=== PATIENT | female | born 1990 | race Caucasian/White ===

== ENCOUNTER 2017-01-25 21:16 | Inpatient (IN) | payer MEDICAID ==
[~2017-01-25] VITALS: Ht 149.9 cm; Wt 60.8 kg
--- NOTE | 2017-01-25 22:00 | NUR ---
PT C/O PELVIC PAIN THAT BEGAN 3 DAYS AGO. SINCE THEN PT STATES ADDITIONAL SX HAVE ACCOMPANY PELVIC PAIN. PT REPORTS TAKING ANTIBIOTIC DUE TO TOOTH INFECTION SINCE THEN PT NOTED LEFT SIDE HEADACHE, DESCRIBING IT PRESSURE. PT LEFT FACIAL NOTED TO BE SWOLLEN IN COMPARISION TO RIGHT FACIAL. PT NOTED TO BE ALERT AND AWAKE, TALKING TO SIGNIFICANT OTHER AT BEDSIDE. NO DISTRESS NOTED AT THIS TIME. PT IN WAITING TO BE SEEN BY ER MD.
--- NOTE | 2017-01-25 23:04 | NUR ---
DR RAMOS AT BEDSIDE FOR MSE.
--- NOTE | 2017-01-25 23:26 | NUR ---
PT MEDICATED PER DR RAMOS ORDERS. PT EDUCATED ON MED AND VERBALIZED UNDERSTANDING OF TEACHING.PT DENIES ANY ALLERGIES TO MED. IV SITE PATENT WITH NO SWELLING REDNESS OR INFILTRATION NOTED. PT AAOX4,BREATHING WITHOUT DIFFICULTY.
--- NOTE | 2017-01-25 23:28 | NUR ---
PT PICKED UP BY [facility] VIA WHEELCHAIR. NO DISTRESS NOTED AT THIS TIME.
--- NOTE | 2017-01-25 23:34 | NUR ---
PT BROUGHT BACK TO VIA WHEELCHAIR FROM XRAY. NO DISTRESS NOTED AT THIS TIME.
[2017-01-25 23:39] LABS: BASOPHIL % 0.4 % (0-2); PLATELET COUNT 257 x10^3mcL (130-400); RED CELL DISTRIBUTION WIDTH 13.4 % (11.5-14.5)
[2017-01-25 23:40] LABS: CALCIUM 8.6 mg/dL (8.5-10.1); CARBON DIOXIDE 28.2 mmol/L (21-32); CHLORIDE SERUM 105 mmol/L (98-107); GFR1 > 60 mL/min; GLUCOSE SERUM 86 mg/dL (74-106); POTASSIUM SERUM 4.1 mmol/L (3.5-5.1); SODIUM SERUM 141 mmol/L (136-145)
[2017-01-25 23:53] LABS: ALBUMIN 3.9 g/dL (3.4-5.0); ALKALINE PHOSPHATASE 78 U/L (46-116); ALT/SGPT 54 U/L (14-59); AMYLASE 77 U/L (25-115); AST/SGOT 23 U/L (15-37); BILIRUBIN TOTAL 0.8 mg/dL (0.20-1.00); LIPASE 115 IU/L (73-393); TOTAL PROTEIN, SERUM 7.3 g/dL (6.4-8.2)
--- NOTE | 2017-01-25 23:54 | NUR ---
LUNCH BREAK REPORT GIVEN TO EVANGELIST ALCANTARA TO COVER CARE.
[2017-01-26] VITALS (7 sets, daily range): BP systolic 96–120; BP diastolic 50–72
[2017-01-26 00:17] LABS: microscopic required? YES; urine erythrocyte TRACE (NEGATIVE)
--- NOTE | 2017-01-26 00:29 | NUR ---
LUNCH BREAK REPORT RECEIVED FROM EVANGELIST ALCANTARA TO CONTINUE CARE.
--- NOTE | 2017-01-26 00:50 | NUR ---
DR RAMOS AT BEDSIDE DISCUSSING PLAN OF CARE.
--- NOTE | 2017-01-26 01:12 | NUR ---
PT GIVEN IV ANTIBIOTIC PER DR RAMOS ORDERS. PT EDUCATED ON MED AND VERBALIZED UNDERSTANDING OF TEACHING. PT DENIES ANY ALLERGIES TO MED. PT IV SITE PATENT WITH NO COMPLICATIONS NOTED. PT AAOX4, BREATHING EVEN AND UNLABORED. NO DISTRESS NOTED AT THIS TIME.
--- NOTE | 2017-01-26 01:25 | NUR ---
XRAY AT BEDSIDE.
--- NOTE | 2017-01-26 01:33 | NUR ---
ADMISSION REPORT GIVEN TO EVANGELIST JASSO EXT [id number] TO CONTINUE CARE.
--- NOTE | 2017-01-26 01:45 | NUR ---
RECEIVED PT IN FROM ER VIA GURNEY WITH NURSE AND FIANCE AT BEDSIDE. PT IS AWAKE, ALERT, ORIENTED X4. PT IS SLIGHTLY DROWSY D/T PAIN MEDICATION GIVEN IN ER. SPEECH IS CLEAR. PLACED PT ON TELE 19, SHOWING NSR. NO CHEST PAIN NOTED. BREATHING EASILY ON ROOM AIR. NO DISTRESS NOTED. HISTORY OBTAINED FROM PT. ORIENTED PT TO ROOM AND SURROUNDINGS. INSTRUCTED PT TO USE CALL LIGHT WHICH IS WITHIN REACH. BED IS IN LOWEST POSITION. WILL CARRY OUT ALL NEW ORDERS.
[2017-01-26 01:58] LABS: MAGNESIUM 2.2 mg/dL (1.8-2.4); PHOSPHOROUS 4.6 mg/dL (2.5-4.9)
[2017-01-26 02:01] LABS: FREE T4 0.97 ng/dL (0.76-1.46); FREE THYROXINE INDEX 2.5 ug/dL (1.4-4.5); T4(THYROXINE) 7.4 ug/dL (4.7-13.3)
[2017-01-26 02:02] LABS: T3 TOTAL 1.17 ng/mL
[2017-01-26 06:03] LABS: CALCIUM 8.5 mg/dL (8.5-10.1); CARBON DIOXIDE 26.5 mmol/L (21-32); CHLORIDE SERUM 105 mmol/L (98-107); CREATININE SERUM 0.9 mg/dL (0.6-1.0); GFR1 > 60 mL/min; GLUCOSE SERUM 89 mg/dL (74-106); MAGNESIUM 2.1 mg/dL (1.8-2.4); PHOSPHOROUS 4.1 mg/dL (2.5-4.9); POTASSIUM SERUM 4.1 mmol/L (3.5-5.1); SODIUM SERUM 141 mmol/L (136-145)
--- NOTE | 2017-01-26 06:15 | NUR ---
PT C/O PAIN, HEADACHE, TORADOL GIVEN ORDERED AT 0600. PT STATES PAIN MED MAKES HER NAUSOUS, ZOFRAN GIVEN ORDERED FOR NAUSEA. ALL NEEDS TENDED TO. WILL ENDORSE TO INCOMING SHIFT.
[2017-01-26 06:18] LABS: BASOPHIL % 0.6 % (0-2); PLATELET COUNT 232 x10^3mcL (130-400); RED CELL DISTRIBUTION WIDTH 13.5 % (11.5-14.5)
--- NOTE | 2017-01-26 07:51 | NUR ---
RECEIVED PT IN BED, A/A/O X 4, CALM, COOPERATIVE, BOYFRIEND BY BEDSIDE. ON TELE # 19, SHOWING SR WITH HR 73. PAUL RADIAL AND PEDAL PULSES PRESENT, NO EDEMA, CAP REFILL < 3 SECS. PAUL LUNGS CLEAR, CHEST RISING EVENLY, ON R/A WITH O2 SAT 96%. ABD SOFT, FLAT, NO C/O PAIN AT THIS TIME, NORMOACTIVE BOWEL SOUNDS X 4 QUADS. VOIDS FREELY, NO C/O PAIN OR DYSURIA, ABLE TO PAS GAS. AMBULATES WITHOUT GAIT OR BALANCE IMPAIRMENT. HAS MILD SWELLING TO L FACE, NO REDNESS. DENIES PAIN AT THIS TIME. IV SITE AT [facility], RUNNING NS AT 100 ML/HR. SIDE RAILS UP X 2, CALL LIGHT WITHIN REACH, BED IN LOW POSITION. WILL CONTINUE TO MONITOR.
--- NOTE | 2017-01-26 08:17 | NUR ---
DR AMEZCUA, RESIDENTS, CHARGE NURSE, AND ASSIGNED NURSE CAME IN TO SEE PT; MD DISCUSSED CARE PLAN FOR PT TODAY; ALL QUESTIONS WERE ANSWERED; PT VERBALIZED UNDERSTANDING.
[2017-01-26 08:59] LABS: AMPHETAMINE QUAL UR NONE DETECTED (NEG <=1000)
--- NOTE | 2017-01-26 11:30 | NUR ---
PT IN BED, ASLEEP, BOYFRIEND BY BEDSIDE. NO RESPIRATORY DISTRESS, PAIN, OR DISCOMFORT NOTED. WILL CONTINUE TO MONITOR.
--- NOTE | 2017-01-26 13:50 | NUR ---
PT IN BED, WATCHING TV, BOYFRIEND BY BEDSIDE; NO RESPIRATORY DISTRESS, PAIN, OR DISCOMFORT NOTED. WILL CONTINUE TO MONITOR.
--- NOTE | 2017-01-26 15:20 | NUR ---
PT WAS TAKEN DOWNSTAIRS VIA W/C TO HAVE CT FACIAL WITH IV CONTRAST; A/A/O X 4, NO RESPIRATORY DISTRESS, PAIN, OR DISCOMFORT NOTED.
--- NOTE | 2017-01-26 18:44 | NUR ---
PT IN BED, ASLEEP. NO RESPIRATORY DISTRESS, PAIN, OR DISCOMFORT NOTED. WILL ENDORSE TO NOC SHIFT.
--- NOTE | 2017-01-26 19:30 | NUR ---
RECEIVED REPORT FROM EVANGELIST BARNES. PT RESTING IN BED IN NO ACUTE DISTRESS. AAOX4. DENIES OF JANE/DIZZINESS. ON TELE MON 19 SR. DENIES OF ANY CHEST DISCOMFORT. PER PULSES STRONG. NEG ON EDEMA. IN RA WITH SAT OF 100%. BREATHING EVENLY AND UNLABORED. NO SOB NOTED. LUNGS CTA. BS ACTIVE. ABD MILDY FIRM. LAST BM TODAY SOFT STOOL PER PT. VOIDS FREELY WITHOUT ANY PAIN. AMBULATES STEADILY. SKIN DRY AND INTACT. STATES PAIN TOLERABLE AT THIS TIME. IV ON RAC PATENT. SAFETY MEASURES ENSURED. PARTNER IS AT THE BEDSIDE. SAFETY MEASURES ENSURED. CALL LIGHT WITHIN REACH. INSTRUCTED PT TO CALL FOR ANY NEEDS/ASSISTANCE. CALL LIGHT WITHIN REACH. WILL CONT TO MONITOR PT.
[2017-01-27 04:40] VITALS: BP 112/63
--- NOTE | 2017-01-27 04:54 | NUR ---
PT DEVELOPED SYSTEMIC RASH APPEARING ALLERGIC REACTION. MADE DR VIGIL AWARE. GIVEN BENADRYL IVP. SAFETY MEASURES ENSURED. CALL LIGHT WITHIN REACH.
[2017-01-27 06:20] LABS: BASOPHIL % 0.5 % (0-2); CALCIUM 8.6 mg/dL (8.5-10.1); CARBON DIOXIDE 25.3 mmol/L (21-32); CHLORIDE SERUM 106 mmol/L (98-107); CREATININE SERUM 0.9 mg/dL (0.6-1.0); GFR1 > 60 mL/min; GLUCOSE SERUM 92 mg/dL (74-106); PLATELET COUNT 207 x10^3mcL (130-400); POTASSIUM SERUM 3.9 mmol/L (3.5-5.1); RED CELL DISTRIBUTION WIDTH 13.2 % (11.5-14.5); SODIUM SERUM 140 mmol/L (136-145)
--- NOTE | 2017-01-27 08:00 | NUR ---
RECEIVED PT FROM NIGHT NURSE IN NO ACUTE DISTRESS. PT ASLEEP. RESPIRATIONS EVEN AND UNLABORED ON RA. IVF INFUSING AT BEDSIDE. BED IN LOWEST POSITION. CALL LIGHT WITHIN REACH. WILL CONTINUE TO MONITOR.
[2017-01-27 08:43] VITALS: BP 114/56
--- NOTE | 2017-01-27 12:30 | NUR ---
PT SITTING UP IN BED IN NO ACUTE DISTRESS. RESPIRATIONS EVEN AND UNLABORED ON RA. AAOX4. BED IN LOWEST POSITION. CALL LIGHT WITHIN REACH. WILL CONTINUE TO MONITOR.
[2017-01-27 12:41] VITALS: BP 111/70
--- NOTE | 2017-01-27 15:56 | NUR ---
Initial Nutrition Assessment Dx:Intractable abdominal pain and urinary tract infection PMHx: Childhood asthma, no longer on medidcation and Multiple Right side nephrolithiasis PSHx: (x3, last in 2014), Hernia Repair (B/L childhood inguinal hernia) Labs:(01/27) B, (01/25) A1c:5.8 Meds: Colace, Pepcid, NS IV, Solumedrol, Zofran Diet:CCHO PO Intake: (01/26) B:20% L:10% and jello Ht: 59in, 4'12" Wt: 134#, 60.8kg BMI:27.1kg/m2 (overweight) IBW: 98#, 45kg %IBW:137 % UBW:119# x 2 months ago per pt Age:26 y/o female Food Allergies:NKFA Skin:intact Rubens:22 Edema:None GI: pain to lower abdomen Last BM:01/25 Nutrition Consult: recommend dietary supplement due to pt not able to eat because of tooth infection. Pt found with UTI w/ intractable abdominal pain, alternatively pain possibly secondary to R. ovarian cyst vs colitis. NO Sepsis, per H&P. Per progress note, 01/26, CT of face and mandible w/ IV contrast was negative for abscess or parotid gland abnormality. Patient broke out into rash last night after recieving dose of clindamycin. Clindamycin discontinued. Patient put on IV Benadryl 25mg Q6H, Claritin 10mg PO QD, Pepcide 20mg PO QD and Solumedrol 40mg IV QDPatient will be put on Flagyl for Molar Tooth #17 infection and patient recieved nicotine patch overnight.Pt admits to nausea and lack of appetite due to tooth infection, but feeling better overall. During visit, observed pt laying in bed with family at bedside. Pt was c/o poor appetite due to tooth infection and stating, "everything taste bitter" RD offered pt supplements to aid in poor PO intake and pt is agreeable. Spoke to Dr. Lopez about recommendations and he input orders. Problem with: N: Yes V: No D:No C: No Problems with: Chewing:No Swallowing: No Current appetite: poor Recent wt change:15# x 2 months %wt change:-12.6% Vitamin/Supplement use:No Special diet at home:Regular Physical activity:No Education: Pt declined nutrition education. Estimated Nutritional Needs Based on ideal body weight 45kg Energy: 1125-1350kcal/d (25-30 kcal/kg for adult maintenance) Protein: 36-45g/d (0.8-1.0g/kg for adult maintenance) Fluid: 1125-1350ml/d (1 ml/kcal) or per doctor Nutrition Diagnosis 1. Inadequate protein energy intake related to tooth infection and abdominal pain as evidence by PO intake 10-20% x 2 meals. Intervention 1.Receommend Boost Plus TID (provides 1080kcal and 42g pro) to help improve PO intake. 2. Consider changing diet from CCCHO to Regular due to pt with poor PO intake. Pt's B Monitor/Evaluate Goal: PO intake at least 75% of estimated needs from meals and supplements Monitor: PO intake, Labs (BG), GI function F/U in 3-5 days as moderate risk:01/30-02/01
[2017-01-27 16:19] VITALS: BP 109/59
--- NOTE | 2017-01-27 19:40 | NUR ---
PT AWAKE AND ALERT RESTING IN BED. AOX4. VERBAL WITH CLEAR SPEECH. NO S/S OF RESPIRATORY DISTRESS NOTED. LUNGS CLEAR BILATERALLY. ON TELE 19, NSR. DENIES ANY CHEST PAIN. ABD SOFT AND FLAT. BOWEL SOUNDS ACTIVE. PT STATES PAIN TO LOWER ABDOMEN 5/10. SKIN WARM AND DRY. IV TO LEFT FA PATENT AND INTACT. NO S/S OF INFECTION NOTED. IV NS INFUSING WELL. NO EDEMA NOTED. PULSES PALPABLE. NO S/S OF DISTRESS NOTED AT THIS TIME. CALL LIGHT WITHIN REACH. WILL CONTINUE TO MONITOR.
[2017-01-27 21:13] VITALS: BP 113/54
--- NOTE | 2017-01-27 23:23 | NUR ---
RECEIVED CALL FROM [employer] STATING PT'S HR WENT UP TO 140S. ARRIVED IN PT'S ROOM AND NOTED PT YELLING AND CRYING ON THE PHONE. PT STATED, "I'M GOOD." PT'S CURRENT HR IN 80S AT THIS TIME. WILL CONTINUE TO MONITOR.
--- NOTE | 2017-01-27 23:45 | NUR ---
RECEIVED CALL FROM [employer], PT OFF TELE. NOTED PT REMOVED TELE MONITOR AND DISCONNECTED SELF FROM IV. PT APPEARS UPSET; CRYING AND STATING, "CAN YOU PLEASE GIVE ME MY DISCHARGE PAPERS PLEASE?" DR. VIGIL NOTIFIED AND IN TO SEE PT.
--- NOTE | 2017-01-28 00:50 | NUR ---
PT STATES, "I WANT TO GET BETTER, I'M SORRY FOR GETTING OUT OF CHARACTER." RECONNECTED PT BACK TO IV. IV PATENT AND IV LEVAQUIN INFUSING WELL. NOTED PT WITH RASH TO UPPER CHEST AND NECK. DENIES ANY SOB, BUT C/O ITCHINESS. DR. VIGIL PRESENT AND AWARE. BENADRYL 50 MG PO GIVEN. PT ALSO C/O 10/10 ABDOMINAL PAIN. PRN TORADOL 30 MG IVP GIVEN AND ATIVAN 2 MG GIVEN PER MD ORDER. CALL LIGHT WITHIN REACH. WILL CONTINUE TO MONITOR.
--- NOTE | 2017-01-28 02:15 | NUR ---
PT RESTING IN BED WITH RELAXED FACIAL FEATURES. NO S/S OF RESPIRATORY DISTRESS NOTED. BREATHING EQUAL AND UNLABORED. IV PATENT AND INFUSING WELL. CALL LIGHT WITHIN REACH. WILL CONTINUE TO MONITOR.
[2017-01-28 05:36] VITALS: BP 99/48
--- NOTE | 2017-01-28 06:37 | NUR ---
PT SLEPT WELL REMAINDER OF THE NIGHT. AROUSED WITH VERBAL AND TACTILE STIMULI. BS 78; NO S/S OF GLYCEMIC CRISIS NOTED. VERBAL WITH CLEAR SPEECH. RECEIVED ROUTINE MEDICATION AND SWALLOWED WITHOUT DIFFICULTY. IV NS INFUSING WELL TO LEFT FA. PT C/O 12/10 ABDOMINAL PAIN. PRN TORADOL 30 MG IVP GIVEN. CALL LIGHT WITHIN REACH. WILL CONTINUE TO MONITOR.
--- NOTE | 2017-01-28 07:27 | NUR ---
RECEIVED PT FROM NIGHT NURSE IN NO ACUTE DISTRESS. PT ASLEEP IN BED. RESPIRATIONS EVEN AND UNLABORED ON RA. IVF INFUSING AT BEDSIDE. BED IN LOWEST POSITION. CALL LIGHT WITHIN REACH. WILL CONTINUE TO MONITOR.
[2017-01-28 08:10] VITALS: BP 93/51
[2017-01-28] MEDS ORDERED: FLA500 PO (10:36)
[2017-01-28] MEDS ORDERED: LEVOFLOXACIN500 M1 PO (10:41)
[2017-01-28] MEDS ORDERED: LAC PO (10:41)
[2017-01-28] MEDS ORDERED: NOR10T PO (10:43)
[2017-01-28] MEDS ORDERED: MEDDP PO (10:54)
[2017-01-28 12:35] VITALS: BP 109/68
--- NOTE | 2017-01-28 12:51 | NUR ---
PT SITTING UP IN BED IN NO ACUTE DISTRESS. AAOX4. RESPIRATIONS EVEN AND UNLABORED ON RA. NORCO GIVEN FOR PAIN. FAMILY AT BEDSIDE. BED IN LOWEST POSITION. CALL LIGHT WITHIN REACH. WILL CONTINUE TO MONITOR.
--- NOTE | 2017-01-28 13:44 | NUR ---
PT D/C TO HOME IN NO ACUTE DISTRESS. AAOX4, RESPIRATIONS EVEN AND UNLABORED ON RA. PT GIVEN D/C INSTRUCTIONS, GIVEN NEW PRESCRIPTIONS, INSTRUCTED TO FOLLOW UP WITH DR. GALE. IV D/C INTACT. PT AMBULATORY, ESCORTED TO DISCHARGE OFFICE BY [facility].
== END 2017-01-28 13:46 | disposition home or self-care (01) | DRG 463 ==
LOC: ED 21:16 → DU 01-26 01:01
PROVIDERS: Emergency Medicine; ADMIT Family Medicine
DX: N39.0 Urinary tract infection, site not specified (principal); N17.0 Acute kidney failure with tubular necrosis; N83.201 Unspecified ovarian cyst, right side; Z87.442 Personal history of urinary calculi; Z68.27 Body mass index [BMI] 27.0-27.9, adult; F17.210 Nicotine dependence, cigarettes, uncomplicated
CPT/HCPCS: 82962; 83880; 84439; 87491; 87591; J1200; J1885; J1956; J2270; J2405; J2920; J3490; J7030; J7613; Q0092; Q0163; Q9967